=== PATIENT | male | born 1985 | race Caucasian/White ===

== ENCOUNTER 2022-12-21 14:35 | Emergency (ER) | payer BC ==
[2022-12-21] MEDS ORDERED: Lidocaine 2% 5 ML SDV INJECT ONE (15:15)
[2022-12-21] MEDS ORDERED: Bupivacaine 0.5% 30 ML SDV INJECT ONE (15:15)
[2022-12-21] MEDS ORDERED: Lidocaine 2% 20 ML MDV INJECT ONE (15:15)
[2022-12-21] MEDS ORDERED: Bupivacaine 0.5% 10 ML SDV INJECT ONE (15:15)
== END 2022-12-21 15:40 ==
LOC: KA.ED 14:35 → EDBD 14:35 → KA.ED 15:40
DX: S62.660B Nondisplaced fracture of distal phalanx of right index finger, initial encounter for open fracture (principal); W31.2XXA Contact with powered woodworking and forming machines, initial encounter; Z88.1 Allergy status to other antibiotic agents
CPT/HCPCS: 64450; 73140-RT; 99283; 99283-25; J3490

== ENCOUNTER 2023-02-11 19:00 | Emergency (ER) | payer BC ==
[2023-02-11] MEDS ORDERED: Sodium Chloride 0.9% 10 ML Syringe FLUSH PRN (19:16)
[2023-02-11 19:25] LABS: BASOPHILS ABSOLUTE AUTO 0.02 10^3/uL (0.00-0.10); BASOPHILS PERCENT AUTO 0.2 % (0.0-1.0); EOSINOPHILS ABSOLUTE AUTO 0.12 10^3/uL (0.10-0.30); EOSINOPHILS PERCENT AUTO 0.9 % (1.0-3.0); HEMATOCRIT 45.4 % (40.0-52.0); HEMOGLOBIN 15.5 g/dL (13.0-17.0); IMMATURE GRAN ABSOLUTE AUTO 0.03 10^3/uL (0.00-0.50); IMMATURE GRAN PERCENT AUTO 0.2 % (0.0-5.0); LYMPHOCYTES ABSOLUTE AUTO 1.74 10^3/uL (1.00-4.00); LYMPHOCYTES PERCENT AUTO 13.1 % (20.0-40.0); MEAN CORPUSCULAR HEMOGLOBIN 28.5 pg (27.0-31.0); MEAN CORPUSCULAR HGB CONC 34.1 g/dL (32.0-36.0); MEAN CORPUSCULAR VOLUME 83.6 fL (82.0-92.0); MEAN PLATELET VOLUME 8.9 fL (7.4-10.4); MONOCYTES ABSOLUTE AUTO 0.64 10^3/uL (0.10-0.80); MONOCYTES PERCENT AUTO 4.8 % (2.0-8.0); NEUTROPHILS ABSOLUTE AUTO 10.72 10^3/uL (2.50-7.00); NEUTROPHILS PERCENT AUTO 80.8 % (50.0-70.0); PLATELET COUNT,PLT 251 10^3/uL (150-400); RED BLOOD CELL COUNT 5.43 10^6/uL (4.50-6.00); RED CELL DISTRIBUTION WIDTH 12.3 % (11.5-14.5); WHITE BLOOD CELL COUNT,WBC 13.27 10^3/uL (5.00-10.00)
[2023-02-11] MEDS: Sodium Chloride 0.9% 50 ML IV SCH (19:30)
[2023-02-11] MEDS: Iopamidol 755 Mg/ML 100 ML Bottle IV ONE (19:30)
[2023-02-11] MEDS: Sodium Chloride 0.9% 1,000 ML IV ONE (19:38)
[2023-02-11 19:48] LABS: APPEARANCE,URINE CLEAR (CLEAR); BILIRUBIN,URINE NEGATIVE (NEGATIVE); COLOR,URINE YELLOW (YELLOW); GLUCOSE,URINE NEGATIVE (NEGATIVE); KETONES,URINE NEGATIVE (NEGATIVE); LEUKOCYTE ESTERASE,URINE NEGATIVE (NEGATIVE); NITRITE,URINE NEGATIVE (NEGATIVE); OCCULT BLOOD,URINE NEGATIVE (NEGATIVE); PH,URINE 6.5 (5.0-9.0); PROTEIN,URINE NEGATIVE (NEGATIVE); UROBILINOGEN,URINE 0.2 E.U./dL (0.2-1.0)
[2023-02-11 19:53] LABS: ALBUMIN 4.1 g/dL (3.40-5.00); BILIRUBIN TOTAL 0.5 mg/dL (0.2-1.0); CALCIUM 8.8 mg/dL (8.7-10.3); CARBON DIOXIDE,CO2 27.6 mmol/L (21.0-32.0); CREATININE 0.93 mg/dL (0.51-1.17); EST CRCL DRUG DOSING (CG) 113.38 mL/min; POTASSIUM,K 3.6 mmol/L (3.5-5.1); PROTEIN TOTAL,TP 7.2 g/dL (6.4-8.2)
[2023-02-11 19:55] LABS: BACTERIA,URINE OCCASIONAL /HPF (NONE TO FEW); EPITHELIAL CELLS,URINE OCCASIONAL /LPF; MUCUS,URINE OCCASIONAL /LPF (NEGATIVE); RBC,URINE 0-5 /HPF (0-5); WBC,URINE 0-5 /HPF (0-5)
[2023-02-12 01:22] VITALS: BP 142/95; PULSE 86
== END 2023-02-11 21:28 ==
LOC: KA.ED 19:00
DX: K35.80 Unspecified acute appendicitis (principal); Z88.1 Allergy status to other antibiotic agents
CPT/HCPCS: 74177; 80053; 81001; 83690; 85025; 96360; 99285-25; J3490; J7030; Q9967